=== PATIENT | male | born 1975 ===

== ENCOUNTER 2020-01-25 03:16 | Emergency (ER) | payer SELFPAY ==
[~2020-01-25] VITALS: Ht 182.9 cm; Wt 113.4 kg
[2020-01-25] MEDS ORDERED: METHADONE HCL10 MG PO (03:28)
[2020-01-25] MEDS ORDERED: GLUCOPHAGE500 MG PO (03:29)
[2020-01-25] MEDS ORDERED: NITROGLYCERIN0.4 MG SL (03:29)
--- NOTE | 2020-01-25 19:24 | EKG ---
[facility] [address] [facility] [place], [place] [address] Signed Normal sinus rhythm with sinus arrhythmia Normal ECG No previous ECGs available Confirmed by RADHA FOUNTAIN MD ([id number] on 01/25/2020 7:23:50 PM Electronically Signed By: RADHA FOUNTAIN MD 01/25/20 1924 PATIENT NAME: PHOENIXCASSIE Electrocardiogram DATE OF : 73 PHYSICIAN: RADHA FOUNTAIN MD REPORT #: [id number] REPORT IS CONFIDENTIAL AND NOT TO BE RELEASED WITHOUT AUTHORIZATION
== END 2020-01-25 04:15 | disposition home or self-care (01) ==
LOC: ED 03:16
DX: G89.29 Other chronic pain (principal); M25.552 Pain in left hip; R07.9 Chest pain, unspecified; E11.9 Type 2 diabetes mellitus without complications; I25.2 Old myocardial infarction; F17.200 Nicotine dependence, unspecified, uncomplicated; Z88.1 Allergy status to other antibiotic agents; Z79.899 Other long term (current) drug therapy
CPT/HCPCS: 93005; 93010; 99283-25; A9270